=== PATIENT | male | born 1945 | race Caucasian/White ===

== ENCOUNTER 2017-05-03 21:02 | Emergency (ER) | payer MEDICARE, OTHER ==
[2017-05-03 21:46] LABS: BASOPHILS # (AUTO) 0.1 10^3/uL (0.0-0.1); BASOPHILS % (AUTO) 0.5 %; EOSINOPHILS # (AUTO) 0.3 10^3/uL (0.0-0.7); EOSINOPHILS % (AUTO) 2.3 %; HCT - HEMATOCRIT 39.7 % (42.0-52.0); HGB - HEMOGLOBIN 13.6 g/dL (14.0-18.0); LYMPHOCYTES # (AUTO) 2.3 10^3/uL (1.5-3.5); LYMPHOCYTES % (AUTO) 16.6 %; MEAN CORPUSCULAR HEMOGLOBIN 30.8 pg (27.0-31.0); MEAN CORPUSCULAR HGB CONC 34.3 g/dL (32.0-36.0); MEAN CORPUSCULAR VOLUME 89.7 fL (80.0-94.0); MEAN PLATELET VOLUME 7.1 fL (7.4-11.4); MONOCYTES # (AUTO) 1.2 10^3/uL (0.0-1.0); MONOCYTES % (AUTO) 8.4 %; NEUTROPHILS # (AUTO) 10.1 10^3/uL (1.5-6.6); NEUTROPHILS % (AUTO) 72.2 %; RED BLOOD COUNT 4.43 10^6/uL (4.70-6.10)
[2017-05-03] MEDS ORDERED: MORPHINE 2 MG/ML SYRINGE IVP STA (21:46)
[2017-05-03 21:51] LABS: BILIRUBIN,URINE NEGATIVE (NEGATIVE); PH,URINE 6.5 PH (5.0-7.5)
[2017-05-03 21:52] LABS: UA CHARGE (STRIP ONLY) YES; UR CULTURE IF IND NOT INDICATED
[2017-05-03 21:55] LABS: ALBUMIN/GLOBULIN RATIO 1.5 (1.0-2.2); BILIRUBIN,TOTAL 0.3 mg/dL (0.2-1.0); CALCIUM 9.1 mg/dL (8.5-10.3); POTASSIUM 3.8 mmol/L (3.5-5.0)
[2017-05-03] MEDS ORDERED: MORPHINE 2 MG/ML SYRINGE ONE (22:04)
--- NOTE | 2017-05-03 22:09 | ED Physician Documentation ---
PD HPI ABD PAIN - Stated complaint Stated Complaint: ABD PX - Chief complaint Chief Complaint: Abd Pain - History obtained from History obtained from: Patient, Family - History of Present Illness Timing - onset: Yesterday Timing - details: Gradual onset, Still present Quality: Aching, Sharp Location: LLQ Worsened by: Eating, Position, Palpation Associated symptoms: Nausea. No: Fever, Vomiting, Hematemesis, Diarrhea, Constipation Similar symptoms before: Work up / diagnostics Recently seen: Not recently seen - Additional information Additional information: Patient is a 71 year old male with a history of diverticulosis who is presenting to the emergency department for left lower quadrant pain. Patient states that the symptoms have been going since yesterday but they have been getting progressively worse. Patient has had prior abdominal surgeries but states that his bowel movements have been normal and regular. Review of Systems Constitutional: reports: Fever. denies: Chills, Myalgias Eyes: denies: Loss of vision, Decreased vision Ears: denies: Ear pain, Drainage/discharge, Foreign body Nose: denies: Rhinorrhea / runny nose, Congestion Throat: denies: Oral lesions / sores, Sore throat Cardiac: denies: Chest pain / pressure, Palpitations Respiratory: denies: Cough GI: reports: Abdominal Pain, Nausea. denies: Vomiting, Constipation, Diarrhea, Bloody / black stool : denies: Dysuria, Frequency, Hesitancy, Unable to Void, Incontinent Skin: denies: Rash, Lesions Musculoskeletal: denies: Neck pain, Back pain Neurologic: denies: Generalized weakness, Focal weakness, Numbness Immunocompromised: denies: Immunocompromised PD PAST MEDICAL HISTORY - Past Medical History Cardiovascular: High cholesterol Endocrine/Autoimmune: Type 2 diabetes : Other HEENT: Glaucoma - Past Surgical History Past Surgical History: Yes General: Appendectomy, Other Ortho: ACL reconstruction, Shoulder arthroplasty - Present Medications Home Medications: Ambulatory Orders Medication Instructions Recorded Confirmed Cephalexin [Keflex] 500 mg PO QID 7 Days 05/04/16 Simvastatin 20 mg PO DAILY 05/04/16 05/04/16 Symbrenza 05/04/16 metFORMIN [Glucophage] 500 mg BID 05/04/16 05/04/16 Ciprofloxacin/Ciprofloxa HCl 500 mg PO BID #14 tab 05/03/17 [Ciprofloxacin ER 500 mg Tablet] Metronidazole 500 mg PO TID #21 tablet 06/05/17 - Allergies Allergies/Adverse Reactions: Allergies Allergy/AdvReac Type Severity Reaction Status Date / Time No Known Drug Allergies Allergy Verified 05/04/16 12:27 - Social History Does the pt smoke?: No Smoking Status: Never smoker Does the pt drink ETOH?: No Does the pt have substance abuse?: No - Immunizations Immunizations are current?: No Immunizations: TDAP >10years/unknown PD ED PE NORMAL - Vitals Vital signs reviewed: Yes - General General: Alert and oriented X 3, No acute distress - HEENT HEENT: Atraumatic, PERRL - Neck Neck: Supple, no meningeal sign - Cardiac Cardiac: RRR, No murmur - Respiratory Respiratory: No respiratory distress, Clear bilaterally - Derm Derm: Normal color, Warm and dry, No rash - Extremities Extremities: No deformity, No tenderness to palpate, Normal ROM s pain - Neuro Neuro: Alert and oriented X 3, No motor deficit, No sensory deficit, Normal speech - Psych Psych: Normal affect PD ED PE EXPANDED - Abdomen Abdomen: Tender to palpation, Guarding, LLQ Results - Vitals Vitals: Vital Signs - 24 hr 05/03/17 05/03/17 05/03/17 21:09 22:15 23:06 Temperature 36.8 C Heart Rate 79 77 74 Respiratory 16 14 16 Rate Blood Pressure 156/85 H 122/62 146/109 H O2 Saturation 96 97 95 Oxygen O2 Source Room air - Labs Labs: Laboratory Tests 05/03/17 05/03/17 05/03/17 21:33 21:33 21:39 WBC 14.0 H RBC 4.43 L Hgb 13.6 L Hct 39.7 L MCV 89.7 MCH 30.8 MCHC 34.3 RDW 13.0 Plt Count 183 MPV 7.1 L Neut # 10.1 H Lymph # 2.3 [place] # 1.2 H Eos # 0.3 Baso # 0.1 Absolute Nucleated RBC 0.00 Nucleated RBCs 0.0 Sodium 137 Potassium 3.8 Chloride 103 Carbon Dioxide 25 Anion Gap 9.0 BUN 25 H Creatinine 1.0 Estimated GFR (MDRD) 74 L Glucose 143 H Calcium 9.1 Total Bilirubin 0.3 AST 26 ALT 30 Alkaline Phosphatase 60 Total Protein 7.0 Albumin 4.2 Globulin 2.8 Albumin/Globulin Ratio 1.5 Lipase 46 Urine Color YELLOW Urine Clarity CLEAR Urine pH 6.5 Ur Specific [place] 1.015 Urine Protein NEGATIVE Urine Glucose (UA) NEGATIVE Urine Ketones NEGATIVE Urine Occult Blood NEGATIVE Urine Nitrite NEGATIVE Urine Bilirubin NEGATIVE Urine Urobilinogen 0.2 (NORMAL) Ur Leukocyte Esterase NEGATIVE Ur Microscopic Review NOT INDICATED Urine Culture Comments NOT INDICATED - Rads (name of study) ct abdomen/pelvis Radiology: Final report received (diverticulitis, without abscess or fistual) PD MEDICAL DECISION MAKING - ED course Complexity details: reviewed old records, reviewed results, re-evaluated patient , considered differential, d/w patient, d/w family ED course: Patient was seen and examined at bedside. IV access was gained and labs were drawn. urine was collected. Patient was treated with morphine for pain. when patient's labs came back he was sent for imaging. when patient returned the results were reviewed. Patient was found to have diverticulitis. Patient was treated with cipro and flagyl. Patient tolerated po without difficulty and was stable for discharge with outpatient follow up. Departure - Departure Disposition: 01 Home, Self Care Clinical Impression: Diverticulitis of gastrointestinal tract Condition: Good Instructions: ED Diverticulitis Follow-Up: primary,care provider [Other] - Within 1 week Prescriptions: Ciprofloxacin/Ciprofloxa HCl [Ciprofloxacin ER 500 mg Tablet] 500 mg PO BID #14 tab Metronidazole 500 mg PO TID #21 tablet Comments: Your symptoms today are being caused by diverticulitis. You had your first dose of antibiotics today and will need to take them for the next week. You shoule start with a clear diet and advance your diet slowly. You should call your pmd tomorrow to set up a follow up appointment for when you go back home. You may return to the emergency department at any time for new, worsening or uncontrollable symptoms. Discharge Date/Time: 05/03/17 23:35
[2017-05-03] MEDS ORDERED: IOPAMIDOL-300 100 ML VIAL IVP ONE (22:33)
--- NOTE | 2017-05-03 23:07 | CT Preliminary Report ---
Exam: CT Abdomen/Pelvis W/ IMPRESSION: 1. Diverticulitis in the distal descending colon. No abscess seen. 2. Small nonobstructing right renal stone. 3. Contracted gallbladder with small stones. No cholecystitis seen. [facility] SITE ID: [id number]
[2017-05-03 23:08] VITALS: BP 146/109
--- NOTE | 2017-05-03 23:10 | CT Report ---
EXAM: CT ABDOMEN AND PELVIS EXAM DATE: 05/03/2017 10:34 PM. CLINICAL HISTORY: Left lower quadrant pain. Leukocytosis. History of prostate cancer. COMPARISONS: None. TECHNIQUE: Routine helical CT imaging was performed through the abdomen and pelvis. IV contrast: Yajaira onic. Enteric contrast: No. Reconstructions: Coronal and sagittal. In accordance with CT protocol optimization, one or more of the following dose reduction techniques w ere utilized for this exam: automated exposure control, adjustment of mA and/or KV based on patient s ize, or use of iterative reconstructive technique. FINDINGS: Lung Bases: Mild bibasilar atelectasis. Liver: No focal lesion identified. Gallbladder/Bile Ducts: Contracted gallbladder with small stones. No cholecystitis identified. Spleen: Normal. Pancreas: Normal. Adrenal Glands: Normal. Kidneys: Small nonobstructing right renal stone. Bilateral cysts. No masses or hydronephrosis seen bi laterally. Peritoneal Cavity/Bowel: Colonic diverticulosis. Diverticulitis in the distal descending colon. No ab scess seen. No small bowel obstruction. No free air or free fluid. Normal-sized mesenteric and retrop eritoneal lymph nodes. Appendix is not seen. No evidence of appendicitis. Pelvic Organs: Radiation seeds in the prostate. Calcification extending from the dome of the prostate measuring 2.7 x 1.9 x 3.0 cm. Visualized pelvic organs are otherwise unremarkable. Vasculature: Mild to moderate atherosclerosis. No aortic aneurysm. Bones: Degenerative changes in the spine with grade 1 degenerative spondylolisthesis at L4-L5. Spinal stenosis. Degenerative joint disease in the hips. Other: None. IMPRESSION: 1. Diverticulitis in the distal descending colon. No abscess seen. 2. Small nonobstructing right renal stone. 3. Contracted gallbladder with small stones. No cholecystitis seen. [facility] Referring Provider Line: [phone] SITE ID: [id number]
[2017-05-03] MEDS ORDERED: metroNIDAZOLE 250 MG TABLET PO STA (23:22)
[2017-05-03] MEDS ORDERED: CIPROFLOXACIN 250 MG TABLET PO STA (23:22)
[2017-05-03] MEDS ORDERED: CIPROFLOXACIN 250 MG TABLET PO ONE (23:24)
[2017-05-03] MEDS ORDERED: metroNIDAZOLE 250 MG TABLET PO ONE (23:25)
== END 2017-05-03 23:35 | disposition home or self-care (01) ==
LOC: ED 21:02
DX: K57.32 Diverticulitis of large intestine without perforation or abscess without bleeding (principal); N20.0 Calculus of kidney; K80.20 Calculus of gallbladder without cholecystitis without obstruction; E78.00 Pure hypercholesterolemia, unspecified; E11.9 Type 2 diabetes mellitus without complications; Z79.84 Long term (current) use of oral hypoglycemic drugs
CPT/HCPCS: 36415; 74177; 80053; 81003; 83690; 85025; 99283; 99284; A9270; Q9967; 81001; 87086

== ENCOUNTER 2017-05-30 22:08 | Emergency (ER) | payer MEDICARE, OTHER ==
[2017-05-30] MEDS ORDERED: ONDANSETRON 4 MG/2 ML VIAL IVP STA (23:03)
[2017-05-30] MEDS ORDERED: ONDANSETRON 4 MG/2 ML VIAL ONE (23:03)
[2017-05-31] MEDS ORDERED: ONDANSETRON ODT 4 MG Prepack 2 TL ONE (00:39)
[2017-05-31] MEDS ORDERED: ONDANSETRON ODT 4 MG Prepack 2 TL STA (00:40)
== END 2017-05-31 00:44 | disposition home or self-care (01) ==
DX: K80.50 Calculus of bile duct without cholangitis or cholecystitis without obstruction (principal); R10.84 Generalized abdominal pain; E78.00 Pure hypercholesterolemia, unspecified; E11.9 Type 2 diabetes mellitus without complications; Z79.84 Long term (current) use of oral hypoglycemic drugs